=== PATIENT | male | born 2000 ===

== ENCOUNTER 2022-12-01 07:26 | Emergency (ER) | payer OTHER, SELFPAY | END 2022-12-01 08:25 | disposition home or self-care (01) | LOC: ERS 07:26 | DX: H21.01 Hyphema, right eye (principal); H54.61 Unqualified visual loss, right eye, normal vision left eye; V89.2XXA Person injured in unspecified motor-vehicle accident, traffic, initial encounter | CPT/HCPCS: 70450; 70486 ==